=== PATIENT | male | born 1970 | race Two or more races ===

== ENCOUNTER 2024-07-22 21:18 | Emergency (ER) | payer SELFPAY ==
[2024-07-22 21:37] VITALS: BP 131/77; PULSE 82; RESP 18; O2SAT 96
== END 2024-07-22 22:41 | disposition left against medical advice (07) ==
LOC: ER 21:18
DX: R73.9 Hyperglycemia, unspecified (principal); Z53.21 Procedure and treatment not carried out due to patient leaving prior to being seen by health care provider
CPT/HCPCS: 82962